=== PATIENT | male | born 1955 | race Caucasian/White ===

== ENCOUNTER → 2018-03-02 | Outpatient (CLI) | payer OTHER ==
[~2018-03-02] MED LIST: ALLO100T PO; ATEN1TAB74 PO; ATEN50TA7 PO; HYDR-3533 PO; OMEP20CA5 PO; PRAV20 PO; PRAV20TA2 PO; QUIN20TA22 PO; QUIN5TAB6 PO
[2018-03-02 09:11] LABS: AUTOMATED NEUTROPHIL # 4.2 TH/MM3 (1.8-7.7); BASOPHIL # 0.1 TH/MM3 (0-0.2); BASOPHIL % 1.2 % (0.0-2.0); EOSINOPHIL % 0.3 % (0.0-4.0); HEMATOCRIT 47.6 % (39.0-51.0); HEMOGLOBIN 16.1 GM/DL (13.0-17.0); LYMPH % 32.6 % (9.0-44.0); LYMPHOCYTE # 2.4 TH/MM3 (1.0-4.8); MEAN CELL VOLUME 94.1 FL (80.0-100.0); MEAN CORPUSCULAR HEMOGLOBIN 31.9 PG (27.0-34.0); MEAN CORPUSCULAR HGB CONC 33.9 % (32.0-36.0); MEAN PLATELET VOLUME 9.8 FL (7.0-11.0); MONO % 8.3 % (0.0-8.0); MONOCYTE # 0.6 TH/MM3 (0-0.9); NEUT % 57.6 % (16.0-70.0); PLATELET COUNT 313 TH/MM3 (150-450); RED BLOOD COUNT 5.06 MIL/MM3 (4.50-5.90); RED CELL DISTRIBUTION WIDTH 14.6 % (11.6-17.2); WHITE BLOOD COUNT 7.3 TH/MM3 (4.0-11.0)
--- NOTE | 2018-03-02 17:20 | EKG ---
Date Performed: 03/02/2018 Time Performed: 09:17:11 PTAGE: 62 years EKG: Sinus rhythm BORDERLINE LEFT AXIS DEVIATION MODERATE INTRAVENTRICULAR CONDUCTION DELAY MINIMAL VOLTAGE CRITERIA F OR LVH, CONSIDER NORMAL VARIANT BORDERLINE ECG Since the PREVIOUS TRACING , no significant change noted DOCTOR: Jannette Harris Interpretating Date/Time 03/02/2018 17:18:43
== END ==
LOC: PHPRE 08:43
PROVIDERS: ATTEND Orthopaedic Surgery
DX: Z01.812 Encounter for preprocedural laboratory examination (principal); Z01.810 Encounter for preprocedural cardiovascular examination; R94.31 Abnormal electrocardiogram [ECG] [EKG]
CPT/HCPCS: 36415; 85025; 93005

== ENCOUNTER → 2018-03-05 | Day surgery (SDC) | payer OTHER ==
[~2018-03-05] VITALS: Ht 182.9 cm; Wt 116.0 kg
[~2018-03-05] MED LIST changes: +ACETAMINOPHEN/HYDROcodone 325 MG/10 MG TAB ONE; -ATEN1TAB74 PO; +BUPIVACAINE/EPINEPHRINE 0.5% PF 30 ML VIAL ONE; +CHLORHEXIDINE GLUCONATE 2 % 1 PACK (2 CLOTHS) TOPICAL PRN; +CHLORHEXIDINE GLUCONATE 4% SOLN 120 ML BTL TOPICAL SCH; -HYDR-3533 PO; +INSULIN HUMAN REGULAR 1,000 UNITS/10 ML VIAL SQ PRN; +KETOROLAC TROMETHAMINE 30 MG/ML (IVP) VIAL ONE; +LACTATED RINGER'S 1000 ML IV PRN; +METOPROLOL TARTRATE 25 MG TAB PO PRN; +MIDAZOLAM HCL 5 MG/ML VIAL (1 ML) ONE; -OMEP20CA5 PO; +POVIDONE IODINE 5% (ANTISEPSIS KIT) 4 APPLICATIONS EACH NARE PRN; -PRAV20 PO; -QUIN20TA22 PO; +SODIUM CHLORID 0.9% 500 ML IV PRN; +VANCOMYCIN 1000 MG/NS 250 ML (for <70 kg) IV SCH; +ceFAZolin 2 GM PREMIX 50 ML IV SCH
[2018-03-05 08:20] VITALS: PULSE 75
[2018-03-05 08:31] VITALS: PULSE 82
[2018-03-05 12:12] VITALS: PULSE 85
--- NOTE | 2018-03-05 12:21 | MP ---
cc: Slava Emmanuel MD DATE OF OPERATION: 03/05/2018 Corrected Copy: 03/05/18 SURGEON: Slava Emmanuel MD PREOPERATIVE DIAGNOSES: 1. Chronic rotator cuff tear with failed rotator cuff repair. 2. Bicipital tendinitis. POSTOPERATIVE DIAGNOSES: 1. Chronic rotator cuff tear with failed rotator cuff repair. 2. Bicipital tendinitis. PROCEDURE PERFORMED: 1. Anterior decompression with repair of multiple rotator cuff tears. 2. Biceps tenodesis. DETAILS OF PROCEDURE: The patient was placed on the operating room table in the supine position and adequate general anesthesia was administered by the anesthesiologist. He was then transferred into the modified beach chair position with padding under the shoulder blade and all skin and bony prominences protected. The shoulder was prepped and draped in the usual sterile fashion. A timeout was called, and the patient's name, procedure, location, etc. were fully confirmed. A curved anterior and superior incision was made over the acromial process and down to the proximal humerus. The wound was taken down through subcutaneous tissues and bleeding points electrocauterized. The deep fascia was then approached and released, exposing the underlying thickened scar tissue with coracoacromial ligament. The ligament itself was extremely thickened and excised. We also encountered severe adhesions. An anterior decompression was then performed with removal of a thickened anterior portion of the acromial process, which was obviously adhered to the underlying tissue and obviously causing impingement. The high speed power bur was utilized to thin the acromial process and allowing then a fingerbreadth to be passed underneath it without additional impingement. This allowed also for additional exposure of the rotator cuff. The rotator cuff did appear to be torn in several different areas, superior, posterior and then anterior at the supraspinatus insertion region. All tears were repaired with #2 FiberWire until a watertight closure was accomplished. Some bursal tissue was allowed to be placed over the repaired area and the shoulder was placed through a range of motion and found no longer to have impingement. During the procedure the biceps tendon was palpable, exposed and then tenodesed to the deep soft tissues, fixating it into the bicipital groove. The deltoid muscle was reapproximated with interrupted sutures of #2 FiberWire. The subcutaneous tissue was closed with running simple 2-0 Vicryl. The skin edges were approximated with 4-0 subcuticular suture. The Steri-Strips were applied, followed by application of a bulky dressing and sling and swathe immobilizer. ESTIMATED BLOOD LOSS: Less than 100 mL. COUNTS: The sponge count and needle counts were reported correct x2. CONDITION ON DISCHARGE: The patient was transferred to the recovery room in satisfactory condition. MD WENDY Glasgow/DENIA , 12:05 PM , 12:19 PM
[2018-03-05 12:45] VITALS: PULSE 82; TEMP 98
[2018-03-05 13:25] VITALS: BP 138/65; PULSE 83; RESP 16; O2SAT 96
== END | disposition home or self-care (01) ==
LOC: PHSDC 07:15
PROVIDERS: ATTEND Orthopaedic Surgery
DX: M75.100 Unspecified rotator cuff tear or rupture of unspecified shoulder, not specified as traumatic (principal); M75.21 Bicipital tendinitis, right shoulder; I10 Essential (primary) hypertension; J45.909 Unspecified asthma, uncomplicated; K21.9 Gastro-esophageal reflux disease without esophagitis; Z98.1 Arthrodesis status
CPT/HCPCS: 01630; 23420; 64415; J0690; J1885; J2250; J3010; J3370; J7050; J7120